=== PATIENT | male | born 1970 | race African-American/Black ===

== ENCOUNTER 2017-12-04 09:42 | Inpatient (IN) | payer MEDICAID, OTHER ==
[2017-12-04] MEDS ORDERED: Pantoprazole IV* 40 MG IV ONE (10:00)
[2017-12-04] MEDS: NS 0.9% 1000 ML* 2,000 ML IV ONE (10:12)
[2017-12-04 10:15] LABS: ABS Basophils 0 10^3/ul (0-0.2); ABS Eosinophils 0 10^3/ul (0-0.6); ABS Lymphocytes 2.4 10^3/ul (1.0-4.8); ABS Monocytes 1.3 10^3/ul (0-0.8); ABS Neutrophils 16.3 10^3/ul (1.5-7.7); ABS Nucleated RBC 0 10^3/ul; Eosinophil % 0.1 % (0-6); Hematocrit 30 % (42-52); Hemoglobin 10.1 g/dl (14.0-18.0); Mean Corpuscular HGB Conc 33 g/dl (31-36); Mean Corpuscular Hemoglobin 32 pg (27-31); Mean Corpuscular Volume 95 fL (80-94); Mean Platelet Volume 10 um3 (7.4-10.4); Nucleated Red Blood Cells % 0; Platelet Count 133 10^3/ul (150-450); Red Cell Distribution Width 15 % (10.5-15); White Blood Count 20.1 10^3/ul (3.5-10.8)
[2017-12-04 10:27] LABS: INR 1.09 (0.77-1.02)
--- NOTE | 2017-12-04 10:42 | RAD ---
HISTORY: GI bleed COMPARISONS: None VIEWS: 1: frontal portable view of the chest at 10:24 AM FINDINGS: LINES AND TUBES: None. CARDIOMEDIASTINAL SILHOUETTE: The cardiomediastinal silhouette is normal for portable technique. PLEURA: The costophrenic angles are sharp. No pleural abnormalities are noted. LUNG PARENCHYMA: The lungs are clear. ABDOMEN: The upper abdomen is clear. There is no subphrenic gas. BONES AND SOFT TISSUES: No bone or soft tissue abnormalities are noted. IMPRESSION: NO ACTIVE CARDIOPULMONARY DISEASE.
[2017-12-04] MEDS ORDERED: Midazolam* 1 MG/ML 10 ML VIAL (10 MG) ONE (11:40)
[2017-12-04] MEDS ORDERED: fentaNYL* 50 MCG/ML 2 ML VIAL (100 MCG VIAL) ONE (11:40)
[2017-12-04] MEDS ORDERED: Acetaminophen TAB* 325 MG PO PRN (14:02)
[2017-12-04] MEDS ORDERED: Ondansetron INJ* 2 MG/ML VIAL IV PRN (14:02)
[2017-12-04] MEDS: Pantoprazole IV* 80 MG in NS 0.9% 250 ML* 250 ML IVPB SCH (15:13)
[2017-12-04 16:14] LABS: ABS Basophils 0.1 10^3/ul (0-0.2); ABS Eosinophils 0 10^3/ul (0-0.6); ABS Lymphocytes 4.1 10^3/ul (1.0-4.8); ABS Neutrophils 8.1 10^3/ul (1.5-7.7); ABS Nucleated RBC 0 10^3/ul; Eosinophil % 0.3 % (0-6); Hematocrit 22 % (42-52); Hemoglobin 7.4 g/dl (14.0-18.0); Mean Corpuscular HGB Conc 34 g/dl (31-36); Mean Corpuscular Hemoglobin 32 pg (27-31); Mean Corpuscular Volume 96 fL (80-94); Mean Platelet Volume 10 um3 (7.4-10.4); Nucleated Red Blood Cells % 0; Platelet Count 109 10^3/ul (150-450); Red Blood Count 2.29 10^6/ul (4.0-5.4); Red Cell Distribution Width 15 % (10.5-15); White Blood Count 13.4 10^3/ul (3.5-10.8)
[2017-12-04 16:41] LABS: EGFR Non-African American 108.3 (>60)
--- NOTE | 2017-12-04 20:03 | HP ---
CC: [facility] * HISTORY AND PHYSICAL: DATE OF ADMISSION: 12/04/17 PROVIDER: Homar Lemus NP PRIMARY CARE PROVIDER: [facility]. ATTENDING PHYSICIAN WHILE IN THE HOSPITAL: Dr. Vee Woo * (dictated by Homar Lemus NP). CHIEF COMPLAINT: 1. Melena. 2. Abdominal pain. HISTORY OF PRESENT ILLNESS: Mr. Dent is a 47-year-old male with a past medical history of seizures, hypertension, high cholesterol, who reports a 3- day history of abdominal pain around the umbilicus and dark black tarry stools x3 days. The patient states that over the past 3 days, he has had black tarry stools and having chills and diaphoresis when standing or ambulating. He reports that he had a decreased appetite that started yesterday. Due to his symptoms, he did go to the [facility] for further evaluation and was sent to the emergency room for further evaluation of his GI bleeding. The patient states that he had a decreased appetite that started yesterday. He denies any other symptoms. Denies any nausea or vomiting. Denies any chest pain or shortness of breath. He does report chills and diaphoresis when standing and ambulating. He also reports that he felt like he was going to black out upon standing. He denies any cough or congestion. Denies any urinary frequency or urgency. PAST MEDICAL HISTORY: 1. Seizures. 2. Hypertension. 3. Hypercholesterolemia. PAST SURGICAL HISTORY: He had right ankle surgery. MEDICATIONS: Home medications include: 1. Naproxen. 2. Amlodipine. 3. Depakote. 4. Vitamin D. 5. Phenobarbital. 6. Atorvastatin. ALLERGIES TO MEDICATIONS: He is allergic to DILANTIN. FAMILY HISTORY: No noted family history of cardiac disease. He does report mother and father both were diabetics along with his grandmother. Denies any family history of cancer. SOCIAL HISTORY: He smokes half a pack per day. He is currently incarcerated at [facility]. Surrogate decision maker in the event he is unable to make his own decisions is [facility]. REVIEW OF SYSTEMS: There has been no documented fever. There has been no significant weight change. There was no double vision. No ear discharge. No rhinorrhea. He does not report any sore throat. Denied any chest pain. Denied any orthopnea or nocturnal dyspnea. He does report abdominal pain around the umbilicus. Denies any nausea or vomiting. Denies dysuria or urinary frequency. He denies any seizure. Denies any loss of consciousness, but does report he did feel as though he may pass out when standing. Denies any pruritus or skin ulcerations. A review of 14 systems was completed and all others were negative. PHYSICAL EXAMINATION GENERAL: At this time, Mr. Dent is a 47-year-old male, appears well, lying in the bed in his inpatient room. He does not appear to be in any acute distress. VITAL SIGNS: As follows: Temperature was 97.4, heart rate was 82, respirations were 14, O2 saturation was 100% on room air, blood pressure was 111 /78. HEENT: Head is atraumatic, normocephalic. Eyes: EOMs are intact. Sclerae anicteric, not pale. Oral mucosa appears to be moist. NECK: Supple. LUNGS: Clear to auscultation bilaterally. No wheezes, rales, or rhonchi. CARDIAC: S1, S2. Regular rate and rhythm. No rubs, murmurs, or gallops. ABDOMEN: Soft, flat. He does have mild tenderness to palpation around the umbilicus. Bowel sounds are present and hypoactive x4. EXTREMITIES: Pulses are +2 throughout. He is moving all 4 extremities with 5/ 5 strength. NEUROLOGIC: He is awake, he is alert and oriented x3. Speech is clear. There are no focal deficits. SKIN: Intact. DIAGNOSTIC STUDIES AND LABORATORY DATA: WBCs were 20.1, RBCs 3.20, hemoglobin was 10.1, hematocrit was 30, MCVs were 95, MCH was 32, RDW was 15, platelet count was 133. INR was 1.09. APTT was 21.7. Sodium 137, chloride was 107, carbon dioxide was 21, anion gap was 9, BUN was 56, creatinine 0.99. Chest x-ray showed no acute cardiopulmonary disease. EKG showed a sinus rhythm at a rate of 71. ASSESSMENT AND PLAN: Mr. Dent is a 47-year-old male that presented to the emergency room today with complaints of abdominal pain and black tarry stools. He was seen and evaluated in the emergency room by GI who took him to endoscopy prior to this evaluation. He will be admitted under observation for GI bleeding for: 1. Gastrointestinal bleeding. GI was consulted and they took him to endoscopy. They did place a clip on an ulcer. We will continue to monitor. He will be placed on a Protonix drip at 8 mg per hour. He may have clear liquid diet. We will trend his H and H. I would recommend stopping all NSAIDs as he recently started taking naproxen on 11/12/17. I would also recommend limiting all gastric irritants. 2. Hypertension. At this time, we will hold his amlodipine as he was hypotensive in the ER. 3. Hypercholesterolemia. We will continue his atorvastatin. 4. Seizures. We will continue his Depakote and phenobarbital. 5. FEN. He will be placed on a clear liquid diet. 6. Code status. He is a full code. 7. DVT prophylaxis. He will have SCDs. 8. Disposition. He will be inpatient on medical floor. TIME SPENT: Time spent on this admission was approximately 60 minutes, greater than half that time was spent [id number] with the patient obtaining his history and physical and the other half was spent going over the plan of care and implementing my plan of care. I have discussed this with my attending, Dr. Vee Woo and she is in agreement with my plan. HOMAR LEMUS, BUYING INTERN [id number]/[facility] #: [id number] KEEGAN
[2017-12-04 21:17] LABS: Hematocrit 19 % (42-52); Hemoglobin 6.6 g/dl (14.0-18.0)
[2017-12-04] MEDS: Divalproex DR TAB(*) 250 MG PO SCH (21:30)
[2017-12-04] MEDS: PHENobarbital TAB(*) 100 MG PO SCH (21:30)
[2017-12-04] MEDS: NS 0.9% 1000 ML* 1,000 ML IV SCH (21:30)
[2017-12-04] MEDS: Cholecalciferol TAB* 1000 UNITS PO SCH (21:31)
[2017-12-04] MEDS: Atorvastatin* 10 MG TAB PO SCH (21:31)
[2017-12-04 22:02] LABS: Mean Platelet Volume 10 um3 (7.4-10.4); Platelet Count 103 10^3/ul (150-450)
--- NOTE | 2017-12-04 22:56 | CONS ---
CC: Shayy Lemus NP; [facility] * GASTROENTEROLOGY CONSULT REPORT: DATE OF CONSULT: 12/04/17 REFERRING PHYSICIAN: [facility]. HISTORY OF PRESENT ILLNESS: Thank you for asking me to see Mr. Dent. As you know, he is a 47-year-old male who is currently incarcerated. He has a history of a seizure disorder and is maintained on phenobarbital. The patient reported presence of black stool yesterday and today and was sent to the emergency room. He does describe some epigastric discomfort. He has had no nausea or vomiting or hematemesis. Upon arrival in the emergency room, he was noted to have guaiac-positive stool as well as some mild hypotension, which responded to IV hydration. His admission hematocrit was 30 with normal hematocrit running in the range of 40. The patient denies any aspirin or ibuprofen ingestion. He states he has never had an ulcer in the past. He did undergo a colonoscopy a few years ago for rectal bleeding, which he states was remarkable for hemorrhoids only. He denies any shortness of breath or chest pain. The patient has been given IV pantoprazole 40 mg in the emergency room. PAST MEDICAL HISTORY: Significant for seizure disorder, hyperlipidemia as well. CURRENT MEDICATIONS: Include: 1. Lipitor. 2. Depakote. 3. Phenobarbital. ALLERGIES: To DILANTIN. FAMILY HISTORY: Noncontributory. SOCIAL HISTORY: The patient is currently incarcerated. No tobacco or alcohol use. REVIEW OF SYSTEMS: A 10-point review of systems is reviewed and otherwise negative. PHYSICAL EXAM: Mr. Dent is a 47-year-old male, in no acute distress. Temperature is 98.4, heart rate of 82, blood pressure 111/78. HEENT Exam: There is no scleral icterus. Heart has regular rate and rhythm. Lungs are clear. Abdomen is soft. There is epigastric tenderness without guarding or rebound. Bowel sounds are present. There is no distention. Rectal exam is deferred. Skin is warm and dry without rash. Extremities without cyanosis, clubbing, or edema. Neuro exam is grossly intact. Alert and oriented x3. IMPRESSION: Mr. Dent presents with melena and anemia. He was mildly hypotensive in the emergency room, which responded to IV fluid bolus. Hematocrit was 30; normal hematocrit of 40. Suspect upper gastrointestinal bleed. RECOMMENDATIONS: Upper endoscopy will take place urgently today. Further recommendations based on the results of that exam. [id number]/[facility] #: [id number] KEEGAN
[2017-12-05] MEDS: Pantoprazole IV* 80 MG in NS 0.9% 250 ML* 250 ML IVPB SCH ×3 (01:23→23:19)
--- NOTE | 2017-12-05 02:33 | PRO ---
CC: GASTROENTEROLOGY PROCEDURE NOTE: DATE OF PROCEDURE: 12/04/17 REFERRING PHYSICIAN: PROCEDURE: EGD with Endoclip placement. PREOPERATIVE DIAGNOSIS: A 47-year-old male, who is currently incarcerated, who developed the onset o f melena yesterday. He was brought to the emergency room this morning. Baseline hematocrit of 40, h ematocrit today was 30. The patient denies any nausea. He has been having epigastric discomfort. T here has been no hematemesis. He has received IV normal saline as well as IV Protonix. Vital signs are stable. POSTOPERATIVE DIAGNOSES: 1. Normal esophagus. 2. Abundant old blood within the stomach, no active bleeding is seen. Visualization of the mucosa is accomplished with abundant irrigation and suctioning. 3. 1-cm ulcer of the prepyloric antrum with a black pigmented spot in the center. Endoclip is applie d, is positioned, and deployed over the ulcer with no resulting bleeding. 4. Normal duodenal bulb and descending duodenum. PROCEDURE MEDICATIONS: 1. Versed 7 mg IV. 2. Fentanyl 100 mcg IV. INSTRUMENT: GF-190 Olympus high-definition gastroscope. DESCRIPTION OF PROCEDURE: Informed consent was obtained prior to performing this procedure. The ins trument was introduced into the mouth and passed the cervical esophagus under direct visualization. The instrument was then advanced down the esophagus. The esophagus was normal. The scope was passed into the gastric cardia, fundus, body, and antrum. There was abundant old blood throughout the stom ach, this could be irrigated and suctioned with fairly good visualization of the mucosa. In the antr um, there was a 1-cm prepyloric ulcer with a black pigmented spot. Endoclip was positioned and deplo yed over the ulcer with no subsequent bleeding. The scope was passed through the pylorus and duodena l bulb and descending duodenum, both of which were normal. The instrument was withdrawn from the pat ient. The patient tolerated the procedure well and there were no complications. RECOMMENDATIONS: The patient will need to have his hematocrit monitored carefully. I will begin him on IV Protonix drip 8 mg per hour. I will start him on clear liquids. He may drop his hematocrit fu rther with re-equilibration and hydration and may require transfusion prior to discharge, hopefully t omorrow or the day after. When discharged, he should be sent on omeprazole 40 mg b.i.d. for at least 3 months. I will also send off H. pylori for stool antigen. [id number]/[facility] #: [id number]
[2017-12-05 06:27] LABS: EGFR Non-African American 100.7 (>60)
[2017-12-05 06:37] LABS: ABS Basophils 0 10^3/ul (0-0.2); ABS Eosinophils 0.1 10^3/ul (0-0.6); ABS Lymphocytes 3.6 10^3/ul (1.0-4.8); ABS Monocytes 0.7 10^3/ul (0-0.8); ABS Neutrophils 3.4 10^3/ul (1.5-7.7); ABS Nucleated RBC 0 10^3/ul; Eosinophil % 1.4 % (0-6); Hematocrit 22 % (42-52); Hemoglobin 7.7 g/dl (14.0-18.0); Lymphocyte % 46.2 % (25-47); Mean Corpuscular HGB Conc 35 g/dl (31-36); Mean Corpuscular Hemoglobin 32 pg (27-31); Mean Corpuscular Volume 91 fL (80-94); Mean Platelet Volume 10 um3 (7.4-10.4); Nucleated Red Blood Cells % 0.1; Platelet Count 91 10^3/ul (150-450); Red Blood Count 2.43 10^6/ul (4.0-5.4); Red Cell Distribution Width 16 % (10.5-15); White Blood Count 7.8 10^3/ul (3.5-10.8)
--- NOTE | 2017-12-05 08:20 | ED ---
José Palm Angela, scribed for Koko Lyles MD on 12/04/17 at 1000 . GI/ HPI - HPI Summary HPI Summary: This pt is a 47 y/o male presenting to [facility] EMS from [facility] c/ o possible GI bleed. Pt reports that 3 days ago he noticed his feces was dark. He then developed abd pain, from his navel down. Today pt states he saw dark bloody stools in large amounts. He additionally reports feeling dizziness when standing up. Pt notes he had a rectal exam done at the correction facility by a provider. Provider sent the pt to the ED for further evaluation. He denies taking a lot of ibuprofen. He had a colonoscopy in 2011 or 2012, was told he had hemorrhoids but otherwise normal colonoscopy. Pt reports he fell on 11/12 and had an MRI of his brain. Pt is on anticonvulsants, cholesterol medications, and antihypertensive medications. - History of Current Complaint Time Seen by Provider: 12/04/17 09:52 Stated Complaint: GI BLEED Hx Obtained From: Patient Onset/Duration: Started Days Ago, Still Present Timing: Lasting Days Current Severity: Moderate Vaginal Bleeding Description: Dark Red Associated Signs and Symptoms: Positive: Blood w/Stool, Abdominal Pain Aggravating Factor(s): Nothing Alleviating Factor(s): Nothing - Allergy/Home Medications Allergies/Adverse Reactions: Allergies Allergy/AdvReac Type Severity Reaction Status Date / Time phenytoin Allergy See Comment Verified 12/04/17 10:28 Home Medications: Home Medications Cholecalciferol TAB* [Vitamin D TAB*] 1,000 unit PO BID 12/04/17 [History Confirmed 12/04/17] Divalproex DR TAB(*) [Depakote DR TAB(*)] 750 mg PO BID 12/04/17 [History Confirmed 12/04/17] Naproxen TAB* [Naprosyn 250 mg TAB*] 500 mg PO BID 12/04/17 [History Confirmed 12/04/17] PHENobarbital [Phenobarbital] 102.6 mg PO BID 12/04/17 [History Confirmed ] amLODIPine TAB* [Norvasc 5 mg TAB*] 10 mg PO DAILY 12/04/17 [History Confirmed 12/04/17] PMH/Surg Hx/FS Hx/Imm Hx Endocrine/Hematology History: Denies: Hx Anticoagulant Therapy, Hx Diabetes Cardiovascular History: Reports: Hx Hypercholesterolemia, Hx Hypertension Neurological History: Reports: Hx Seizures Psychiatric History: Reports: Hx Substance Abuse - Family History Known Family History: Negative: Cardiac Disease - Social History Alcohol Use: None Substance Use Type: Reports: None Smoking Status (MU): Current Some Day Smoker Review of Systems Negative: Fever, Chills ENT: Negative Cardiovascular: Negative Gastrointestinal: Other - bloody stools, dark stools Positive: Abdominal Pain Genitourinary: Negative Musculoskeletal: Negative All Other Systems Reviewed And Are Negative: Yes Physical Exam - Summary Physical Exam Summary: VITAL SIGNS: Reviewed. GENERAL: Patient is a well-developed and nourished female who is lying comfortable in the stretcher. Patient is not in any acute respiratory distress. HEAD AND FACE: No signs of trauma. No ecchymosis, hematomas or skull depressions. No sinus tenderness. EYES: PERRLA, EOMI x 2, No injected conjunctiva, no nystagmus. EARS: Hearing grossly intact. Ear canals and tympanic membranes are within normal limits. MOUTH: Oropharynx within normal limits. NECK: Supple, trachea is midline, no adenopathy, no JVD, no carotid bruit, no c- spine tenderness, neck with full ROM. CHEST: Symmetric, no tenderness at palpation LUNGS: Clear to auscultation bilaterally. No wheezing or crackles. CVS: Regular rate and rhythm, S1 and S2 present, no murmurs or gallops appreciated. ABDOMEN: Soft, non-tender. No signs of distention. No rebound no guarding, and no masses palpated. Bowel sounds are normal. EXTREMITIES: FROM in all major joints, no edema, no cyanosis or clubbing. NEURO: Alert and oriented x 3. No acute neurological deficits. Speech is normal and follows commands. SKIN: Dry and warm Triage Information Reviewed: Yes Vital Signs Reviewed: Yes Diagnostics - Laboratory Result Diagrams: 12/04/17 15:58 12/04/17 15:58 Lab Statement: Any lab studies that have been ordered have been reviewed, and results considered in the medical decision making process. - Radiology Chest XR Xray Interpretation: No Acute Changes - IMPRESSION: No active cardiopulmonary disease. Dr. Lyles has reviewed this radiology report. Radiology Interpretation Completed By: Radiologist - EKG 10:31 Cardiac Rate: NL EKG Rhythm: Sinus Rhythm - at 71 bpm EKG Interpretation: No ST elevation. GIGU Course/Dx - Course Assessment/Plan: This pt is a 47 y/o male presenting to [facility] via EMS from correction facility c/o possible GI bleed. Pt reports that 3 days ago he noticed his feces was dark. He then developed abd pain, from his navel down. Today pt states he saw dark bloody stools in large amounts. He additionally reports feeling dizziness when standing up. Pt notes he had a rectal exam done at the correction facility by a provider. Provider sent the pt to the ED for further evaluation. He denies taking a lot of ibuprofen. He had a colonoscopy in 2011 or 2012, was told he had hemorrhoids but otherwise normal colonoscopy. Pt reports he fell on 11/12 and had an MRI of his brain. Pt is on anticonvulsants, cholesterol medications, and antihypertensive medications. It is documented the pt had digital exam with positive stool occult blood. He declined the rectal exam here today. Initially the pt was hypotensive and tachycardic. Test results show WBC of 20, H&H of 10.1/30, BUN of 56 consistent with upper GI bleed. The pt was given IV fluids and protonix. I discussed the test results and findings with Dr. Salazar, patient care coordinator, and she will perform a colonoscopy and recommends admission to the hospitalist services. I discussed the case with Dr. Woo, hospitalist, who accepted the pt for admission. Pt is hemodynamically stable, alert and oriented x3. - Diagnoses Provider Diagnoses: GI bleed - Physician Notifications Discussed Care Of Patient With: Ibis Salazar Time Discussed With Above Provider: 10:52 Instructed by Provider To: Other - I discussed pt care with Dr. Salazar, patient care coordinator, who will do an endoscopy and recommends admission to the hospitalist. [11:12] I discussed with Dr. Woo, hospitalist, who has agreed to admit the pt. - Critical Care Time Critical Care Time: 75-104 min Discharge - Discharge Plan Condition: Stable Disposition: ADMITTED TO [facility] documentation as recorded by the José cantor Angela accurately reflects the service I personally performed and the decisions made by me, Koko Lyles MD.
[2017-12-05] MEDS: Divalproex DR TAB(*) 250 MG PO SCH ×2 (09:44→21:02)
[2017-12-05] MEDS: PHENobarbital TAB(*) 100 MG PO SCH ×2 (09:44→21:01)
[2017-12-05] MEDS: Cholecalciferol TAB* 1000 UNITS PO SCH ×2 (09:45→21:02)
[2017-12-05] MEDS: NS 0.9% 1000 ML* 1,000 ML IV SCH (14:25)
--- NOTE | 2017-12-05 15:53 | PN ---
Subjective Date of Service: 12/05/17 Interval History: Patient seen and examined at bedside. Denies fever, chills, lightheadedness or dizzinesses, shortness of breath, chest discomfort, N/V/D. Pt states that he had a small BM this AM and continues to feel bloated. He is requesting his diet be increased and is tolerating a full liquid diet. Family History: Unchanged from Admission Social History: Unchanged from Admission Past Medical History: Unchanged from Admission Objective Active Medications: Acetaminophen (Tylenol Tab*) 650 mg PO Q4H PRN Reason: FEVER/PAIN Atorvastatin Calcium (Lipitor*) 10 mg PO BEDTIME TERESSA Cholecalciferol (Vitamin D Tab*) 1,000 units PO BID TERESSA Divalproex Sodium (Depakote Dr Tab(*)) 750 mg PO BID TERESSA Pantoprazole Sodium 80 mg/ (Sodium Chloride) 250 mls @ 25 mls/hr IVPB Q10H TERESSA Sodium Chloride (Ns 0.9% 1000 Ml*) 1,000 mls @ 125 mls/hr IV PER RATE TERESSA Ondansetron HCl (Zofran Inj*) 4 mg IV Q4H PRN Reason: NAUSEA/VOMITING Phenobarbital (Phenobarbital Tab(*)) 100 mg PO BID TERESSA Vital Signs - 8 hr 12/05/17 12/05/17 12/05/17 08:00 09:44 11:46 Temperature 98.3 F Pulse Rate 63 Respiratory 18 18 18 Rate Blood Pressure 123/64 (mmHg) O2 Sat by Pulse 100 Oximetry 12/05/17 12/05/17 11:55 15:12 Temperature 98.2 F Pulse Rate 66 Respiratory 18 16 Rate Blood Pressure 138/82 (mmHg) O2 Sat by Pulse 100 Oximetry Oxygen Devices in Use Now: None Appearance: NAD, sitting up in bed Ears/Nose/Mouth/Throat: Mucous Membranes Moist Respiratory: Symmetrical Chest Expansion and Respiratory Effort, Clear to Auscultation Cardiovascular: NL Sounds; No Murmurs; No JVD, RRR Abdominal: NL Sounds; No Tenderness; No Distention - , slightly distended ABD Extremities: No Edema Skin: No Rash or Ulcers Neurological: Alert and Oriented x 3, NL Muscle Strength and Tone Lines/Tubes/Other Access: Clean, Dry and Intact Peripheral IV - site benign Result Diagrams: 12/05/17 05:17 12/05/17 05:17 Assess/Plan/Problems-Billing Assessment: Mr. Dent is a 47 yo male with PMH significant for seizures, HTN and HLD who presented to the emergency room with complaints of abdominal pain and black tarry stools. - Patient Problems (1) Upper GI bleeding Code(s): K92.2 - GASTROINTESTINAL HEMORRHAGE, UNSPECIFIED SNOMED Code(s): 42958276 Comment: - Vital signs stable, HH stable - Received 2 units of PRBCs yesterday - GI consult, input appreciated. S/P EGD with ulcer clip yesterday - Will continue to trend HH and check orthostatic VS - Continue protonix gtt (2) HTN (hypertension) Code(s): I10 - ESSENTIAL (PRIMARY) HYPERTENSION SNOMED Code(s): 95878129 Comment: - SBP 100-130's - Consider resuming amlodipine in the AM (3) HLD (hyperlipidemia) Code(s): E78.5 - HYPERLIPIDEMIA, UNSPECIFIED SNOMED Code(s): 34034548 Comment: - Continue atorvastatin (4) Seizures Code(s): R56.9 - UNSPECIFIED CONVULSIONS SNOMED Code(s): 69059492 Comment: - Seizure precautions - Continue depakote and phenobarbital (5) DVT prophylaxis Code(s): UQJ7715 - SNOMED Code(s): 651622076 Comment: - Chemical DVT prophylaxis contraindicated in the setting of GI bleed - SCDs (6) Full code status Code(s): Z78.9 - OTHER SPECIFIED HEALTH STATUS SNOMED Code(s): 810328095 Status and Disposition: Inpatient. Discharge to home when medically stable.
[2017-12-05 17:03] LABS: Hematocrit 26 % (42-52); Hemoglobin 9.2 g/dl (14.0-18.0)
[2017-12-05] MEDS: Atorvastatin* 10 MG TAB PO SCH (21:02)
--- NOTE | 2017-12-05 21:25 | PN ---
GASTROENTEROLOGY PROGRESS NOTE: DATE OF FOLLOWUP: 12/05/17 SUBJECTIVE: Mr. Qureshi presented yesterday with upper GI bleed. He did undergo upper endoscopy which did reveal a 1 cm ulcer of the prepyloric antrum with a pigmented spot. The ulcer was endo-clipped. There was abundant old blood through the stomach. There was no fresh blood and no oozing from Endoc lip placement. The patient's admission hematocrit was 30. It did come down to as low as 19 with re- equilibration on hydration. The patient apparently passed 1 dark stool early this morning and none since. There has been no nausea, vomiting. NG tube was placed at my request and was clear without a ny evidence of coffee grounds or active bleeding. This was clamped for 2 hours while the patient was given his antiseizure medication and repeat suction revealed no evidence of blood. The patient has r eceived a total of 2 units of packed red blood cells. His hematocrit is currently stable at 22 witho ut signs of active bleeding. He is on an IV pantoprazole drip. His vital signs have been stable. Josué traylor has been on a full liquid diet. I would monitor his hematocrit and I would give him 1 additional u nit of packed red blood cells. If the hematocrit remains stable, he may be discharged home tomorrow hopefully on omeprazole or Protonix 40 mg b.i.d. for 6 months. Stool for H. pylori antigen is christiano meyer [id number]/[facility] #: [id number]
[2017-12-06 07:20] LABS: ABS Basophils 0 10^3/ul (0-0.2); ABS Eosinophils 0.2 10^3/ul (0-0.6); ABS Lymphocytes 2.8 10^3/ul (1.0-4.8); ABS Monocytes 0.8 10^3/ul (0-0.8); ABS Neutrophils 4.8 10^3/ul (1.5-7.7); ABS Nucleated RBC 0 10^3/ul; Eosinophil % 2.4 % (0-6); Hematocrit 22 % (42-52); Hemoglobin 7.5 g/dl (14.0-18.0); Lymphocyte % 32.5 % (25-47); Mean Corpuscular HGB Conc 35 g/dl (31-36); Mean Corpuscular Hemoglobin 32 pg (27-31); Mean Corpuscular Volume 92 fL (80-94); Mean Platelet Volume 10 um3 (7.4-10.4); Nucleated Red Blood Cells % 0.1; Platelet Count 85 10^3/ul (150-450); Red Blood Count 2.36 10^6/ul (4.0-5.4); Red Cell Distribution Width 16 % (10.5-15); White Blood Count 8.6 10^3/ul (3.5-10.8)
[2017-12-06] MEDS: PHENobarbital TAB(*) 100 MG PO SCH (07:56)
[2017-12-06] MEDS: Cholecalciferol TAB* 1000 UNITS PO SCH (07:56)
[2017-12-06] MEDS: Divalproex DR TAB(*) 250 MG PO SCH (07:56)
[2017-12-06] MEDS ORDERED: amLODIPine TAB* 5 MG PO SCH (09:00)
[2017-12-06] MEDS: Pantoprazole IV* 80 MG in NS 0.9% 250 ML* 250 ML IVPB SCH ×2 (11:08→16:21)
[2017-12-06 12:34] LABS: Hematocrit 26 % (42-52)
[2017-12-06 15:44] VITALS: BP 122/71
--- NOTE | 2017-12-06 16:12 | DCNOTE ---
Subjective Date of Service: 12/06/17 Interval History: Pt reports he is feeling better, would like to take a shower. No abdominal pain but reports gas. No bloating. Reports he is tolerating diet well. Family History: Unchanged from Admission Social History: Unchanged from Admission Past Medical History: Unchanged from Admission Objective Active Medications: Acetaminophen (Tylenol Tab*) 650 mg PO Q4H PRN PRN Reason: FEVER/PAIN Amlodipine Besylate (Norvasc Tab*) 10 mg PO DAILY [facility] Last Admin: 12/06/17 07:56 Dose: 10 mg Atorvastatin Calcium (Lipitor*) 10 mg PO BEDTIME [facility] Last Admin: 12/05/17 21:02 Dose: 10 mg Cholecalciferol (Vitamin D Tab*) 1,000 units PO BID [facility] Last Admin: 12/06/17 07:56 Dose: 1,000 units Divalproex Sodium (Depakote Dr Tab(*)) 750 mg PO BID [facility] Last Admin: 12/06/17 07:56 Dose: 750 mg Pantoprazole Sodium 80 mg/ (Sodium Chloride) 250 mls @ 25 mls/hr IVPB Q10H [facility] Last Admin: 12/06/17 11:08 Dose: 25 mls/hr Ondansetron HCl (Zofran Inj*) 4 mg IV Q4H PRN PRN Reason: NAUSEA/VOMITING Phenobarbital (Phenobarbital Tab(*)) 100 mg PO BID [facility] Last Admin: 12/06/17 07:56 Dose: 100 mg Vital Signs - 8 hr 12/06/17 12/06/17 12/06/17 09:45 10:05 10:31 Temperature 98.2 F 98.0 F Pulse Rate 73 73 Respiratory 20 20 18 Rate Blood Pressure 129/83 148/73 (mmHg) O2 Sat by Pulse 100 100 Oximetry 12/06/17 12/06/17 12:00 15:14 Temperature 98.2 F 98.0 F Pulse Rate 88 68 Respiratory 20 18 Rate Blood Pressure 125/75 122/71 (mmHg) O2 Sat by Pulse 100 Oximetry Oxygen Devices in Use Now: None Appearance: 47 yo well developed male A+O x3 in NAD Eyes: No Scleral Icterus, PERRLA Ears/Nose/Mouth/Throat: NL Teeth, Lips, Gums, Mucous Membranes Moist Neck: NL Appearance and Movements; NL JVP Respiratory: Symmetrical Chest Expansion and Respiratory Effort, Clear to Auscultation Cardiovascular: NL Sounds; No Murmurs; No JVD, RRR, No Edema Abdominal: NL Sounds; No Tenderness; No Distention Extremities: No Edema, No Clubbing, Cyanosis Skin: No Rash or Ulcers, No Nodules or Sclerosis Neurological: Alert and Oriented x 3, NL Sensation, NL Muscle Strength and Tone Lines/Tubes/Other Access: Clean, Dry and Intact Peripheral IV Nutrition: Taking PO's Result Diagrams: 12/06/17 12:21 12/05/17 05:17 Assess/Plan/Problems-Billing Assessment: Mr. Dent is a 47 yo male with PMH significant for seizures, HTN and HLD who presented to the emergency room with complaints of abdominal pain and black tarry stools. - Patient Problems (1) Upper GI bleeding Comment: - Vital signs stable, HH stable - Received 2 units of PRBCs yesterday, 1 unit PRBC today - GI consult, input appreciated. S/P EGD with ulcer clip 12/04 - Omeprazole 40 mg BID - CBC in 2 days at 5 points - hpylori pending (2) HLD (hyperlipidemia) Comment: - Continue atorvastatin (3) HTN (hypertension) Comment: - hold amlodipine - recheck BP tomorrow and consider resuming at 5 points (4) Seizures Comment: - no seizures - Seizure precautions - Continue depakote and phenobarbital (5) DVT prophylaxis Comment: - Chemical DVT prophylaxis contraindicated in the setting of GI bleed - SCDs (6) Full code status Status and Disposition: Inpatient. Discharge to 5 points.
--- NOTE | 2017-12-08 03:46 | DS ---
DISCHARGE SUMMARY: DATE OF ADMISSION: 12/04/17 DATE OF DISCHARGE: 12/06/17 PROVIDER: Cristhian Barrera NP ATTENDING PHYSICIAN: Dr. Woo * (report dictated by Cristhian Barrera NP). PRIMARY CARE PROVIDER: [facility]. CONSULTING HEDGE FUND MANAGER: Dr. Ibis Salazar. DISCHARGE DIAGNOSIS: Upper gastrointestinal bleed, found to have a 1-cm ulcer of the prepyloric antrum and is now status post Endo Clip. SECONDARY DIAGNOSES: 1. Seizure disorder. 2. Hypertension. 2. Hypercholesterolemia. DISCHARGE MEDICATIONS: 1. Depakote DR 750 mg p.o. b.i.d. 2. Vitamin D 1000 units p.o. b.i.d. 3. Phenobarbital 102.6 mg p.o. b.i.d. 4. Lipitor 10 mg p.o. at bedtime. Medications at home: Norvasc 10 mg p.o. daily. Please note that this was held in the setting of hypotension. The patient's blood pressures have been stable over the past 48 hours systolically in the 120s to 130s. Please restart this in 1 to 2 days. New medications: 1. Omeprazole 40 mg p.o. b.i.d. for 6 months. 2. Probiotic 1 cap p.o. b.i.d. TESTS PENDING: Stool for H. pylori antigen is currently pending. This will need to be followed upon regarding if the patient requires treatment for H. pylori. HISTORY OF PRESENT ILLNESS AND HOSPITAL COURSE: Please see history and physical for full admission details by Shayy Lemus NP, but in summary on 12/04/17, Mr. Dent was brought to [facility] from [place] with complaint of melena and abdominal pain, who was found to have an upper GI bleed. It was also noted he takes an NSAID, naproxen, on a scheduled basis. The patient presented with a hemoglobin of 10.1, which dropped as low as 6.6. He has received 3 units in total of packed red blood cells and today, his hemoglobin and hematocrit are 9.0 and 26. His amlodipine was held due to hypotension with blood pressure systolically in the 80s and 90s; however, this resolved with fluid resuscitation and transfusion of packed red blood cells and stabilization of the bleeding ulcer. The patient has done well throughout his hospitalization. He was seen and consulted by Dr. Ibis Salazar, property management assistant, who took the patient for an upper endoscopy on 12/05/17, which did reveal a 1-cm ulcer of the prepyloric antrum with the pigmented spots and he underwent an Endo Clip. Recommendation was to discharge the patient home on omeprazole 40 mg p.o. b.i.d. for 6 months, as well as a stool for H. pylori antigen is pending at this time. Today, on evaluation, the patient is stable. He is tolerating p.o. Recommendation is to continue a soft diet for 3 to 5 more days and can advance his diet. The patient also reports gas which is not uncommon for him. In this setting, it is possible he may continue to move some old blood and may have some further dark stools. However, the patient does tell me he has a lot of bloating in his past, which could be considered to be secondary to poor dietary habits. The patient also reports he drinks coffee "all day long." He was recommended to cut back on his coffee intake to 2 to 3 cups only. DISCHARGE PLAN: 1. The patient is stable for transfer back to [place] today. 2. Follow up CBC in 2 to 3 days. 3. Again, H. pylori test is pending and it will need to be determined whether he requires treatment for H. pylori or not. 4. If there is any concerning worsening symptoms, please return to the emergency department. TIME SPENT: Approximately 60 minutes was spent on this discharge. CRISTHIAN BARRERA, DAVE [id number]/[facility] #: [id number] [place]
== END 2017-12-06 19:00 | DRG 241 ==
LOC: ED 09:42 → EEVIPCON 12:31 → MED 12:31
PROVIDERS: ADMIT Internal Medicine; ATTEND Internal Medicine
PROC: 0W3P8ZZ Control Bleeding in Gastrointestinal Tract, Via Natural or Artificial Opening Endoscopic (ICD-10-PCS; principal; 2017-12-04)
PROC: 0DB68ZX Excision of Stomach, Via Natural or Artificial Opening Endoscopic, Diagnostic (ICD-10-PCS; 2017-12-04)
PROC: 30233N1 Transfusion of Nonautologous Red Blood Cells into Peripheral Vein, Percutaneous Approach (ICD-10-PCS; 2017-12-06)
DX: K25.4 Chronic or unspecified gastric ulcer with hemorrhage (principal); D62 Acute posthemorrhagic anemia; I95.9 Hypotension, unspecified; G40.909 Epilepsy, unspecified, not intractable, without status epilepticus; E78.5 Hyperlipidemia, unspecified; D72.829 Elevated white blood cell count, unspecified; I10 Essential (primary) hypertension; Z79.899 Other long term (current) drug therapy; Z88.8 Allergy status to other drugs, medicaments and biological substances; Z83.3 Family history of diabetes mellitus; F17.210 Nicotine dependence, cigarettes, uncomplicated
CPT/HCPCS: 36415; 71045; 80048; 80053; 85014; 85018; 85025; 85049; 85610; 85730; 86850; 86900; 86901; 86922; 87338; 93005; 99156; 99157; 99284; 99406; A9270-GY; J2250; J3010; P9040